=== PATIENT | female | born 1975 | race African-American/Black ===

== ENCOUNTER 2024-10-12 23:03 | Emergency (ER) | payer SELFPAY ==
[~2024-10-12] VITALS: Ht 152.4 cm; Wt 81.6 kg
[2024-10-12] MEDS: ONDANSETRON HCL/PF 4 MG/2 ML VIAL IM ONE (23:30)
[2024-10-12] MEDS ORDERED: ONDANSETRON HCL/PF 4 MG/2 ML VIAL ONE (23:35)
[2024-10-13 05:25] VITALS: BP 128/94; TEMP 97.6; O2SAT 100
== END 2024-10-13 05:25 | disposition home or self-care (01) ==
LOC: ER 23:29
DX: F10.129 Alcohol abuse with intoxication, unspecified (principal); I10 Essential (primary) hypertension; Y90.9 Presence of alcohol in blood, level not specified
CPT/HCPCS: 99285; 96372; 82962; J2405